=== PATIENT | female | born 1950 | race Caucasian/White ===

== ENCOUNTER 2016-09-01 22:08 | Emergency (ER) | payer MEDICAID ==
[~2016-09-01] VITALS: Ht 162.6 cm; Wt 70.0 kg
[~2016-09-01 22:08] MED LIST: ASPI-1159 PO; CALCIUM PO; GLUXL10 PO; IBUP-2029 PO; LEVO500T15 PO; LISI-604 PO; METF500T4 PO; ONDA4TAB5 PO; PROT20 PO; SIMV10TA6 PO
[2016-09-02] MEDS ORDERED: KETOROLAC 30MG/ML VIAL IV ONE (00:30)
[2016-09-02 01:29] VITALS: BP 117/62
== END 2016-09-02 02:01 | disposition home or self-care (01) ==
LOC: ER 23:06
DX: G40.909 Epilepsy, unspecified, not intractable, without status epilepticus (principal); S00.81XA Abrasion of other part of head, initial encounter; S40.212A Abrasion of left shoulder, initial encounter; W18.11XA Fall from or off toilet without subsequent striking against object, initial encounter; Y93.89 Activity, other specified; Y92.098 Other place in other non-institutional residence as the place of occurrence of the external cause
CPT/HCPCS: 96374; 99284; J1885; Z7610